=== PATIENT | female | born 1945 | race Caucasian/White ===

== ENCOUNTER 2020-10-06 12:15 | Emergency (ER) | payer OTHER, MEDICARE ==
[~2020-10-06] VITALS: Ht 157.5 cm; Wt 77.1 kg
[2020-10-06 12:33] VITALS: BP_SYST 154
--- NOTE | 2020-10-06 12:40 | NUR ---
Patient triaged and placed in waiting room. VSS and patient appears in no acute distress at this time. Accompanied by self, awaiting available bed, and MD notified of need for MSE.
== END 2020-10-06 13:15 | disposition left against medical advice (07) ==
LOC: SED 12:15
DX: M54.9 Dorsalgia, unspecified (principal); Z53.21 Procedure and treatment not carried out due to patient leaving prior to being seen by health care provider